=== PATIENT | male | born 1975 | race Caucasian/White ===

== ENCOUNTER 2022-05-17 22:38 | Emergency (ER) | payer MEDICAID ==
[~2022-05-17] VITALS: Ht 175.3 cm; Wt 121.1 kg
[2022-05-17 22:41] VITALS: BP 129/83
--- NOTE | 2022-05-17 22:48 | NUR ---
PT TO [facility]
--- NOTE | 2022-05-17 23:00 | NUR ---
PATIENT LEFT WITHOUT BEING SEEN BY DR. DUQUE. NO FURTHER CARE PROVIDED FOR PATIENT.
== END 2022-05-17 23:00 | disposition left against medical advice (07) ==
LOC: MED 22:38
DX: F10.129 Alcohol abuse with intoxication, unspecified (principal); Z53.21 Procedure and treatment not carried out due to patient leaving prior to being seen by health care provider; Y90.9 Presence of alcohol in blood, level not specified
CPT/HCPCS: 99281